=== PATIENT | female | born 1985 | race African-American/Black ===

== ENCOUNTER 2021-12-24 20:10 | Observation (INO) | payer OTHER, SELFPAY ==
[2021-12-24 21:55] LABS: Mean Corpuscular HGB CONC 25.3 g/dL (32.0-36.0); Mean Corpuscular Hemoglobin 15.4 pg (27.0-33.0); Mean Corpuscular Volume 60.8 fl (81.6-98.3); Mean Platelet Volume 9.8 fl (7.4-10.4); Platelet Count 208 10x3/uL (150-450); RBC Distribution Width 20.2 % (11.5-14.5); White Blood Cell (WBC) Count 5.6 10x3/uL (3.5-10.5)
[2021-12-24 21:56] LABS: BHCG - Serum Negative (NEGATIVE); Pregs Control Background? CLEAR/WHITE (CLR/WHITE); Pregs Control Bar Appear? YES (CONTROL BAR)
[2021-12-24 21:59] LABS: MDiff Complete? YES
[2021-12-24 22:04] LABS: ALT (SGPT) 9 U/L (8-55); AST (SGOT) 8 U/L (5-34); Albumin 3.7 g/dL (3.5-5.0); Alkaline Phosphatase 62 U/L (40-110); Anion Gap 9 mmol/L (10-20); BUN (Urea Nitrogen) 11 mg/dL (7.0-18.7); Bilirubin, Total 0.4 mg/dL (0.2-1.2); Calc. Creatinine Clearance 0 mL/min (70-130); Calcium 8.6 mg/dL (7.8-10.44); Carbon Dioxide 28 mmol/L (22-29); Chloride 109 mmol/L (98-107); Estimated GFR 114; Globulin 2.6 g/dL (2.4-3.5); Glucose 110 mg/dL (70-105); Potassium 3.5 mmol/L (3.5-5.1); Protein, Total 6.3 g/dL (6.0-8.3); Sodium 142 mmol/L (136-145)
[2021-12-24 22:48] LABS: Eosinophils 8 % (0-10); Lymphocytes 22 % (21-51); Monocytes 12 % (0-10); Neutrophil 58 % (42-75)
[2021-12-24 22:49] LABS: Anisocytosis SLIGHT = 6-15 cells (100X) (0-5/hpf); Hypochromia SLIGHT = 6-15 cells (100X) (0-5/hpf); Macrocytosis SLIGHT = 6-15 cells (100X) (0-5/hpf); Microcytosis SLIGHT = 6-15 cells (100X) (0-5/hpf)
[2021-12-24 22:50] LABS: Large Platelets SLIGHT
[2021-12-25 00:36] VITALS: BMI 34.2
[2021-12-25] MEDS ORDERED: Acetaminophen 325 MG TAB PO PRN (00:56)
[2021-12-25] MEDS ORDERED: Ondansetron PF 4 MG/2 ML Vial IVP PRN (00:56)
[2021-12-25 01:48] LABS: SARS-CoV-2 NAA Rapid Test Not Detected (NotDetected)
[2021-12-25] MEDS ORDERED: Tranexamic Acid 650 MG TAB PO SCH (02:00)
[2021-12-25] MEDS: Lactated Ringer's 1,000 ML IV SCH ×2 (02:15→11:29)
[2021-12-25] MEDS: Tranexamic Acid 650 MG TAB PO SCH ×2 (08:56→17:01)
[2021-12-25 12:22] LABS: Hemoglobin 7.9 g/dL (12.0-15.5); Mean Corpuscular HGB CONC 27.8 g/dL (32.0-36.0); Mean Corpuscular Volume 64.5 fl (81.6-98.3); Platelet Count 205 10x3/uL (150-450); RBC Distribution Width 23.4 % (11.5-14.5); White Blood Cell (WBC) Count 7.2 10x3/uL (3.5-10.5)
[2021-12-25 15:45] VITALS: BP 135/59; TEMP 97.6
== END 2021-12-25 17:48 | disposition home or self-care (01) ==
LOC: CSHERS 20:10 → CSHTELE 23:16 → UNDOADMOB 12-25 00:22
PROVIDERS: ADMIT Obstetrics & Gynecology; ATTEND Obstetrics & Gynecology
DX: N92.0 Excessive and frequent menstruation with regular cycle (principal); D64.9 Anemia, unspecified
CPT/HCPCS: 36415; 36430; 76856; 80053; 84484; 84703; 85025; 85027; 86850; 86900; 86901; 93005; G0378; J7120; P9016; U0002